=== PATIENT | male | born 1960 | race Caucasian/White ===

== ENCOUNTER 2019-01-14 15:55 | Emergency (ER) | payer SELFPAY ==
[2019-01-14] MEDS ORDERED: ONDANSETRON 4 MG/2 ML VIAL ONE (16:29)
[2019-01-14] MEDS ORDERED: FAMOTIDINE 20 MG/2 ML VIAL IV ONE (16:29)
[2019-01-14] MEDS ORDERED: NA CHLORIDE 0.9% 1,000 ML ONE (16:29)
[2019-01-14 16:42] LABS: Absolute Lymphocytes (CBC) 0.5 K/uL (0.7-4.9); Basophils % 0.2 % (0-1.3); Hematocrit 44.7 % (39.6-49.0); MPV 7.9 fL (7.6-11.3); RBC Red Blood Cell Count 4.91 M/uL (4.33-5.43)
[2019-01-14 16:50] LABS: Protime INR 1.04
[2019-01-14 17:18] LABS: Blood Morphology Comment NOT SEEN (NOT SEEN); Platelet Estimate ADEQ; Urine White Blood Cell Casts OK
[2019-01-14 17:27] LABS: ALT/SGPT 32 U/L (12-78); AST/SGOT 17 U/L (15-37); Albumin 3.7 g/dL (3.4-5.0); Alkaline Phosphatase 64 U/L (45-117); BUN Blood Urea Nitrogen 19 mg/dL (7-18); Bicarbonate 24 mmol/L (21-32); Bilirubin Direct 0.2 mg/dL (0-0.2); Bilirubin Total 0.6 mg/dL (0.2-1.0); Glucose Level 155 mg/dL (74-106); Lipase 95 U/L (73-393); Magnesium 1.7 mg/dL (1.8-2.4); NT PRO-BNP 32 pg/mL (<125); Potassium 3.9 mmol/L (3.5-5.1); Protein, Total 6.7 g/dL (6.4-8.2); Sodium Level 141 mmol/L (136-145); Troponin (Emerg Dept Use Only) < 0.02 ng/mL (0.0-0.045)
[2019-01-14] MEDS ORDERED: MAGNESIUM SULFATE 1 gm IVPB 1 GM/100 ML BAG IV ONE (17:38)
--- NOTE | 2019-01-14 18:01 | EDPHYS ---
Physician Documentation [facility] Name: Negrito Palomino Age: 58 yrs Sex: Male : 1960 Arrival Date: 01/14/2019 Time: 16:07 Bed 24 Private MD: ED Physician Vinicius Reyes HPI: 01/14 16:45 This 58 yrs old Male presents to ER via EMS with complaints of Heat Exposure. cp Historical: - Allergies: 16:10 No Known Allergies; hb - Home Meds: 16:10 None [Active]; hb - PMHx: 16:10 None; hb - PSHx: 16:10 None; hb - Immunization history:: Adult Immunizations up to date. - Social history:: Smoking status: Patient/guardian denies using tobacco. - Ebola Screening: : No symptoms or risks identified at this time. ROS: 16:50 Constitutional: Negative for body aches, chills, fever, poor PO intake. cp 16:50 Eyes: Negative for injury, pain, redness, and discharge. cp 16:50 ENT: Negative for drainage from ear(s), ear pain, sore throat, difficulty swallowing, difficulty handling secretions. 16:50 Cardiovascular: Negative for chest pain, edema, palpitations. 16:50 Respiratory: Positive for shortness of breath, Negative for cough, wheezing. 16:50 Abdomen/GI: Positive for nausea and vomiting, Negative for abdominal pain, diarrhea, constipation, black/tarry stool, rectal bleeding. 16:50 Skin: Negative for rash. 16:50 Neuro: Positive for dizziness, weakness, Negative for altered mental status, headache, numbness, syncope. 16:50 All other systems are negative. Exam: 16:53 ECG was reviewed by the Attending Physician. cp 17:00 Constitutional: The patient appears in no acute distress, alert, awake, cp non-diaphoretic, non-toxic, well developed, well nourished. 17:00 Head/Face: Normocephalic, atraumatic. cp 17:00 Eyes: Periorbital structures: appear normal, Pupils: equal, round, and reactive to light and accomodation, Extraocular movements: intact throughout, Conjunctiva: normal, no exudate, no injection, Sclera: no appreciated abnormality, Lids and lashes: appear normal, bilaterally. 17:00 ENT: External ear(s): are unremarkable, Ear canal(s): are normal, clear, TM's: dullness, bilaterally, Nose: is normal, Mouth: Lips: moist, Oral mucosa: pink and intact, moist, Posterior pharynx: is normal, airway is patent, no erythema, no exudate. 17:00 Neck: ROM/movement: is normal, is supple, without pain, no range of motions limitations, no nuchal rigidity. 17:00 Chest/axilla: Inspection: normal, Palpation: is normal, no crepitus, no tenderness. 17:00 Cardiovascular: Rate: normal, Rhythm: regular, Heart sounds: murmur, not appreciated, Edema: is not appreciated, JVD: is not appreciated. 17:00 Respiratory: the patient does not display signs of respiratory distress, Respirations: normal, no use of accessory muscles, no retractions, no splinting, no tachypnea, labored breathing, is not present, Breath sounds: are clear throughout, no decreased breath sounds, no stridor, no wheezing. 17:00 Abdomen/GI: Inspection: abdomen appears normal, Bowel sounds: active, all quadrants, Palpation: abdomen is soft and non-tender, in all quadrants. 17:00 Back: pain, is absent, ROM is normal. 17:00 Neuro: Orientation: to person, place \T\ time. Mentation: is normal, Cerebellar function: is grossly normal, Motor: moves all fours, strength is normal, Sensation: is normal. Vital Signs: 16:09 BP 164 / 76; Pulse 77; Resp 16; Temp 97.9; Pulse Ox 97% on R/A; Weight 83.91 kg; Height hb 5 ft. 9 in. (175.26 cm); Pain 0/10; 17:50 BP 166 / 81 LA (auto/reg); Pulse 78; Resp 18; Pulse Ox 100% ; Pain 0/10; jp3 16:09 Body Mass Index 27.32 (83.91 kg, 175.26 cm) hb MDM: 16:20 Patient medically screened. cp 17:00 Differential diagnosis: dehydration, electrolyte abnormality, heat exhaustion, heat cp stroke. 17:53 Data reviewed: vital signs, nurses notes, lab test result(s), EKG, and as a result, I cp will discharge patient. Test interpretation: by ED physician or midlevel provider: ECG. Response to treatment: the patient's symptoms have markedly improved after treatment, VSS. Patient reports feeling better and is observed sitting up in exam room. Will discharge to home for continued monitoring. 01/14 16:21 Order name: Basic Metabolic Panel; Complete Time: 17:29 cp 08/14 17:29 Interpretation: Normal except: CL 108; GLUC 155; BUN 19; GFR 58. cp 01/14 16:21 Order name: CBC with Diff; Complete Time: 17:29 cp 08 17:30 Interpretation: Normal except: SETH% 90.0; LYM% 5.0; NEUT A 9.4; LYMA 0.5. cp 01/14 16:21 Order name: LFT's; Complete Time: 17:29 cp 01/14 16:21 Order name: Magnesium; Complete Time: 17:29 cp 14 17:30 Interpretation: Abnormal: MG 1.7. cp 01/14 16:21 Order name: NT PRO-BNP; Complete Time: 17:29 cp 01/14 16:21 Order name: PT-INR; Complete Time: 17:29 cp 01/14 16:21 Order name: Troponin (emerg Dept Use Only); Complete Time: 17:29 cp 01/14 16:21 Order name: Lipase; Complete Time: 17:29 cp 01/14 16:52 Order name: CBC Smear Scan; Complete Time: 17:29 EDMS 01/14 16:21 Order name: EKG; Complete Time: 16:22 cp 01/14 16:21 Order name: Cardiac monitoring; Complete Time: 16:41 cp 01/14 16:21 Order name: EKG - Nurse/Tech; Complete Time: 16:42 cp 01/14 16:21 Order name: IV Saline Lock; Complete Time: 16:42 cp 01/14 16:21 Order name: Labs collected and sent; Complete Time: 16:42 cp 01/14 16:21 Order name: O2 Per Protocol; Complete Time: 16:41 cp 01/14 16:21 Order name: O2 Sat Monitoring; Complete Time: 16:41 cp 01/14 16:49 Order name: Labs - recollect needed; Complete Time: 16:53 bd 01/14 17:31 Order name: PO challenge; Complete Time: 17:35 cp EC:53 Rate is 76 beats/min. Rhythm is regular. LA interval is normal. QRS interval is normal. cp QT interval is normal. Interpreted by me. Reviewed by me. Administered Medications: 16:30 Drug: NS 0.9% 1000 ml Route: IV; Rate: 1 bolus; Site: right antecubital; ca1 17:44 Follow up: Response: No adverse reaction; IV Status: Completed infusion; IV Intake: ca1 1000ml 16:35 Drug: Zofran 4 mg Route: IVP; Site: right antecubital; ca1 17:44 Follow up: Response: No adverse reaction; Nausea is decreased ca1 16:37 Drug: Pepcid 20 mg Route: IVP; Site: right antecubital; ca1 17:45 Follow up: Response: No adverse reaction ca1 16:50 CANCELLED (ERROR - wrong pt. NOT GIVEN): fentaNYL (PF) 25 mcg IVP once; RASS on ADMIN: ca1 Combtv4, Very Agttd3, Agttd2, Rstlss1, AlertClm0, Drwsy-1, Lt Sdtn-2, Mod Sdtn-3, Dp Sdtn-4, UnArsble-5 17:44 Drug: Magnesium Sulfate 1 grams Route: IVPB; Infused Over: 30 mins; Site: right forearm;ca1 18:40 Follow up: Response: No adverse reaction; IV Status: Completed infusion; IV Intake: ca1 100ml Disposition: 01/14/19 17:59 Discharged to Home. Impression: Heat exhaustion, unspecified. - Condition is Stable. - Discharge Instructions: Nausea and Vomiting, Adult, Heat Exhaustion Information. - Prescriptions for Zofran 4 mg Oral Tablet - take 1 tablet by ORAL route every 12 hours As needed; 20 tablet. - Medication Reconciliation Form, Thank You Letter, Antibiotic Education, Prescription Opioid Use form. - Follow up: Private Physician; When: 1 - 2 days; Reason: Worsening of condition. - Problem is new. - Symptoms have improved. Signatures: Dispatcher [employer] EDMS Rhonda Daniel Corey, PA PA cp Baxter, Heather, RN RN Dana Hernandez RN RN ca1 Corrections: (The following items were deleted from the chart) 16:50 16:44 fentaNYL (PF) 25 mcg IVP once; RASS on ADMIN: Combtv4, Very Agttd3, Agttd2, ca1 Rstlss1, AlertClm0, Drwsy-1, Lt Sdtn-2, Mod Sdtn-3, Dp Sdtn-4, UnArsble-5 ordered. ca1 17:30 17:30 Normal except: SETH% 90.0; LYM% 5.0; NEUT A 9.4. cp cp 18:47 17:59 01/14/2019 17:59 Discharged to Home. Impression: Heat exhaustion, unspecified. ca1 Condition is Stable. Forms are Medication Reconciliation Form, Thank You Letter, Antibiotic Education, Prescription Opioid Use. Follow up: Private Physician; When: 1 - 2 days; Reason: Worsening of condition. Problem is new. Symptoms have improved. cp
--- NOTE | 2019-01-14 18:01 | ER ---
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 Pt reports being out in the heat since 0900 today. BP 156/87, HR 80s, T 97.9 ax, BGL 221. 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 Transition of care: patient was not received from another setting of care. Onset of symptoms was January 14, 2019. Risk Assessment: Do you want to hurt yourself or someone else? Patient reports no desire to harm self or others. Initial Sepsis Screen: Does the patient meet any 2 criteria? No. Patient's initial sepsis screen is negative. Does the patient have a suspected source of infection? No. Patient's initial sepsis screen is negative. Care prior to arrival: IV initiated. 18 GA, in the right forearm, Glucose check: 221. 16:10 Method Of Arrival: EMS: [facility] hb 16:10 Acuity: BUNNY 3 hb Historical: - Allergies: 16:10 No Known Allergies; hb - Home Meds: 16:10 None [Active]; hb - PMHx: 16:10 None; hb - PSHx: 16:10 None; hb - Immunization history:: Adult Immunizations up to date. - Social history:: Smoking status: Patient/guardian denies using tobacco. - Ebola Screening: : No symptoms or risks identified at this time. Screenin:25 Abuse screen: Denies threats or abuse. Denies injuries from another. Nutritional ca1 screening: No deficits noted. Tuberculosis screening: No symptoms or risk factors identified. Fall Risk IV access (20 points). Assessment: 16:25 General: Appears in no apparent distress. comfortable, Behavior is calm, cooperative, ca1 appropriate for age. Pain: Denies pain. Neuro: Level of Consciousness is awake, alert, obeys commands, Oriented to person, place, time, situation, Reports dizziness, earlier while boating but not at this time. Cardiovascular: Heart tones S1 S2 present Capillary refill < 3 seconds Patient's skin is warm and dry. Respiratory: Airway is patent Respiratory effort is even, unlabored, Respiratory pattern is regular, symmetrical. GI: Abdomen is flat, non-distended, Bowel sounds present X 4 quads. Abd is soft and non tender X 4 quads. Reports nausea. : No deficits noted. No signs and/or symptoms were reported regarding the genitourinary system. EENT: No deficits noted. No signs and/or symptoms were reported regarding the EENT system. Derm: Skin is intact, is healthy with good turgor, Skin is pink, warm \T\ dry. Musculoskeletal: Circulation, motion, and sensation intact. Capillary refill < 3 seconds, Range of motion: intact in all extremities. 17:45 Reassessment: Patient appears in no apparent distress at this time. Patient is alert, ca1 oriented x 3, equal unlabored respirations, skin warm/dry/pink. Water with ice given. PT tolerating oral fluids. No reports of N/V and dizziness. 18:18 Reassessment: Patient appears in no apparent distress at this time. Patient is alert, ca1 oriented x 3, equal unlabored respirations, skin warm/dry/pink. Magnesium drip infusing. To be discharged once completed. Vital Signs: 16:09 BP 164 / 76; Pulse 77; Resp 16; Temp 97.9; Pulse Ox 97% on R/A; Weight 83.91 kg; Height hb 5 ft. 9 in. (175.26 cm); Pain 0/10; 17:50 BP 166 / 81 LA (auto/reg); Pulse 78; Resp 18; Pulse Ox 100% ; Pain 0/10; jp3 16:09 Body Mass Index 27.32 (83.91 kg, 175.26 cm) ED Course: 16:07 Patient arrived in ED. hb 16:09 Anil Adair PA is PHCP. cp 16:09 Vinicius Reyes MD is Attending Physician. cp 16:10 Arm band placed on. hb 16:13 Triage completed. hb 16:20 Dana Hernandez, YVONNE is Primary Nurse. ca1 16:25 Patient has correct armband on for positive identification. Bed in low position. Call ca1 light in reach. Side rails up X 1. youth nutritional monitor on. Pulse ox on. NIBP on. Warm blanket given. 16:25 No provider procedures requiring assistance completed. Maintain EMS IV. Dressing ca1 intact. Good blood return noted. Site clean \T\ dry. Gauge \T\ site: g20 RFA. 16:48 EKG done, by sonogram technician. reviewed by Vinicius Reyes MD. sm3 17:00 Lab(s) recollected, by me, sent to lab. jp3 18:45 IV discontinued, intact, bleeding controlled, No redness/swelling at site. Pressure ca1 dressing applied. Administered Medications: 16:30 Drug: NS 0.9% 1000 ml Route: IV; Rate: 1 bolus; Site: right antecubital; ca1 17:44 Follow up: Response: No adverse reaction; IV Status: Completed infusion; IV Intake: ca1 1000ml 16:35 Drug: Zofran 4 mg Route: IVP; Site: right antecubital; ca1 17:44 Follow up: Response: No adverse reaction; Nausea is decreased ca1 16:37 Drug: Pepcid 20 mg Route: IVP; Site: right antecubital; ca1 17:45 Follow up: Response: No adverse reaction ca1 16:50 CANCELLED (ERROR - wrong pt. NOT GIVEN): fentaNYL (PF) 25 mcg IVP once; RASS on ADMIN: ca1 Combtv4, Very Agttd3, Agttd2, Rstlss1, AlertClm0, Drwsy-1, Lt Sdtn-2, Mod Sdtn-3, Dp Sdtn-4, UnArsble-5 17:44 Drug: Magnesium Sulfate 1 grams Route: IVPB; Infused Over: 30 mins; Site: right forearm;ca1 18:40 Follow up: Response: No adverse reaction; IV Status: Completed infusion; IV Intake: ca1 100ml Intake: 17:44 IV: 1000ml; Total: 1000ml. ca1 18:40 IV: 100ml; Total: 1100ml. ca1 Outcome: 17:59 Discharge ordered by . laura 18:45 Discharged to home ambulatory, with friend. ca1 18:45 Condition: stable 18:45 Discharge instructions given to patient, Instructed on discharge instructions, follow up and referral plans. medication usage, Demonstrated understanding of instructions, follow-up care, medications, Prescriptions given X 1. 18:47 Patient left the ED. ca1 Signatures: Anil Adair PA PA cp Baxter, Heather, RN RN hb Yanni Garcia sm3 Yon Del Valle jp3 Dana Hernandez, RN RN ca1
--- NOTE | 2019-01-15 11:38 | EKG ---
Test Date: 2019-01-14 Test Time: 16:38:14 Status Controller: JUNO MEASUREMENT RESULTS: Intervals: Rate: 76 VA: 146 QRSD: 94 QT: 426 QTc: 479 [place]: P: 73 VA: 146 QRS: 82 T: 83 INTERPRETIVE STATEMENTS: Normal sinus rhythm Normal ECG No previous ECG available for comparison Electronically Signed On 01-15-19 11:35:03 CDT by Gualberto Wilkerson
== END 2019-01-14 18:47 | disposition home or self-care (01) ==
LOC: ER 15:55
DX: R53.1 Weakness (principal); X30.XXXA Exposure to excessive natural heat, initial encounter; Y93.9 Activity, unspecified; Y92.9 Unspecified place or not applicable
CPT/HCPCS: 36415; 80048; 80076; 83690; 83735; 83880; 84484; 85025; 85610; 93005; J2405; J3475; J7030